=== PATIENT | female | born 1965 | race Two or more races ===

== ENCOUNTER 2018-05-12 16:43 | Emergency (ER) | payer OTHER ==
[~2018-05-12] VITALS: Ht 154.9 cm; Wt 76.7 kg
[2018-05-12 16:57] VITALS: BP 142/68
--- NOTE | 2018-05-12 18:00 | RAD ---
Indication: Pain in the left hip of the stepping or object one week ago. TECHNIQUE: AP pelvis and 2 views of the left hip COMPARISON: None FINDINGS/ impression: No acute fracture or dislocation. The hip joint is symmetric bilaterally with minimal osteoarthritis. SI joints within normal limits. Visualized lumbar spine is within normal limits. Electronically signed by: Tristian Hutton DO (05/12/2018 5:57 PM) [facility]
--- NOTE | 2018-05-12 18:19 | PHYS DOC ---
Past Medical History Past Medical History: DVT Past Surgical History: Knee Replacement Alcohol Use: Occasionally Drug Use: None Adult General Chief Complaint Chief Complaint: LOWEREXTREMITY INJURY [facility] HPI Patient is a 52 year old female with history of DVT to the left knee after an injury years ago who presents today complaining of 10 out of 10 pain radiating into the left lower extremity that has been going on for one week with numbness on the thigh. Patient states the pain began after she tripped at work but did not fall. She states she has been seen at urgent care twice for this pain. She states she just came from urgent care and they sent her to the ED to geta venous Doppler of the left lower extremity to rule out any DVT. Patient denies any chest pain or shortness of breath. She is currently not on any blood pain is. Review of Systems Review of Systems Constitutional: Denies fever or chills [] Eyes: Denies change in visual acuity, redness, or eye pain [] HENT: Denies nasal congestion or sore throat [] Respiratory: Denies cough or shortness of breath [] Cardiovascular: No additional information not addressed in HPI [] GI: Denies abdominal pain, nausea, vomiting, bloody stools or diarrhea [] : Denies dysuria or hematuria [] Musculoskeletal: Reports pain radiating to the left lower extremity with numbness to the thigh Integument: Denies rash or skin lesions [] Neurologic: Denies headache, focal weakness or sensory changes [] All other systems were reviewed and found to be within normal limits, except as documented in this note. Physical Exam Physical Exam Constitutional: Well developed, well nourished, no acute distress, non-toxic appearance. [] HENT: Normocephalic, atraumatic, bilateral external ears normal, oropharynx moist, no oral exudates, nose normal. [] Eyes: PERRLA, EOMI, conjunctiva normal, no discharge. [] Neck: Normal range of motion, no tenderness, supple, no stridor. [] Cardiovascular:Heart rate regular rhythm, no murmur [] Lungs & Thorax: Bilateral breath sounds clear to auscultation [] Abdomen: Bowel sounds normal, soft, no tenderness, no masses, no pulsatile masses. [] Skin: Warm, dry, no erythema, no rash. [] Back: No tenderness, no CVA tenderness. [] Extremities: No tenderness, no cyanosis, no clubbing, ROM intact, no edema. Negative Homans sign to the left lower extremity. Neurologic: Alert and oriented X 3, normal motor function, normal sensory function, no focal deficits noted. [] Psychologic: Affect normal, judgement normal, mood normal. [] Current Patient Data Vital Signs Vital Signs Date Time Temp Pulse Resp B/P (MAP) Pulse Ox O2 Delivery O2 Flow Rate FiO2 05/12/18 16:57 97.8 77 18 142/68 (92) 94 Room Air 97.8 EKG EKG [] Radiology/Procedures Radiology/Procedures []PROCEDURE: HIP LEFT 2V WITH PELVIS Indication: Pain in the left hip of the stepping or object one week ago. TECHNIQUE: AP pelvis and 2 views of the left hip COMPARISON: None FINDINGS/ impression: No acute fracture or dislocation. The hip joint is symmetric bilaterally with minimal osteoarthritis. SI joints within normal limits. Visualized lumbar spine is within normal limits. Electronically signed by: Tristian Esteban DO (05/12/2018 5:57 PM) [facility] DICTATED and SIGNED BY: TRISTIAN ESTEBAN DO DATE: 05/12/18 7818 Course & Med Decision Making Course & Med Decision Making Pertinent Labs and Imaging studies reviewed. (See chart for details) This is a 52-year-old female patient presenting to the ED today with the pain radiating into the left lower extremity after injuring herself at work, she tripped but did not fall a week ago. She has been seen at urgent care twice for this pain. They sent her to the ED today for venous Doppler. Venous Doppler of the left lower extremity is negative for any acute findings. Left hip x-rays including pelvis are negative for any acute findings. Patient was discharged with gabapentin, diclofenac, cyclobenzaprine and Medrol Dosepak. Instructed to follow-up with her own PCP or the orthopedic doctor provided in one week. Ice elevation encouraged. Dragon Disclaimer Dragon Disclaimer This electronic medical record was generated, in whole or in part, using a voice recognition dictation system. Departure Departure Impression: Primary Impression: Sciatica of left side Additional Impression: Paresthesia Disposition: 01 HOME, SELF-CARE Condition: STABLE Referrals: NO PCP (PCP) LUIS REGALADO MD follow up in one week Patient Instructions: Paresthesia, [id number], Sciatica with Rehab-SportsMed Additional Instructions: You were evaluated in the emergency room for pain on your left leg with the numbness to the thigh. Your left hip x-rays including pelvic are negative for any acute findings, your venous Doppler of the left lower extremity is negative for any acute findings. Take the medicines prescribed as ordered. Try to ice and elevate the extremity. Follow-up with your own doctor the provided doctor in 1-2 weeks. Scripts Gabapentin (GABAPENTIN) 300 Mg Capsule 300 MG PO TID, #30 CAP Prov: MYRON MENDEZ APRN 05/12/18 Diclofenac Sodium (DICLOFENAC SODIUM) 50 Mg Tablet.dr 1 TAB PO BID, #30 TAB 0 Refills Prov: MYRON MENDEZ APRN 05/12/18 Methylprednisolone (MEDROL) 4 Mg Tab.ds.pk 1 PKG PO UD, #1 PKG Prov: MYRON MENDEZ APRN 05/12/18 Cyclobenzaprine Hcl (CYCLOBENZAPRINE HCL) 10 Mg Tablet 1 TAB PO TID, #30 TAB Prov: MYRON MENDEZ APRN 05/12/18 Problem Qualifiers MYRON MENDEZ APRN May 12, 2018 18:19
[2018-05-12] MEDS ORDERED: CYCL10TA2 PO (18:25)
[2018-05-12] MEDS ORDERED: DICL50TA4 PO (18:25)
[2018-05-12] MEDS ORDERED: METH4TAB2 PO (18:25)
[2018-05-12] MEDS ORDERED: GABA-586 PO (18:25)
--- NOTE | 2018-05-12 19:32 | RAD ---
Ultrasound venous Doppler INDICATION:pt c/o tingling down lat thigh, pain mid lat thigh, post work injury TECHNIQUE: Grayscale, color Doppler and spectral waveform ultrasound images of the left lower extremities deep veins obtained. COMPARISON: None FINDINGS: The interrogated deep veins are compressible and demonstrate evidence of blood flow with normal respiratory variation and response to augmentation. Focused scan in the lateral thigh in the region of pain demonstrates no sonographic abnormality. IMPRESSION: No sonographic evidence of acute DVT of the left lower extremity deep veins. Electronically signed by: Tristian Hutton DO (05/12/2018 7:29 PM) [facility]
== END 2018-05-12 19:05 | disposition home or self-care (01) ==
LOC: ER 16:43
DX: M54.32 Sciatica, left side (principal); R20.2 Paresthesia of skin; M25.552 Pain in left hip; M25.562 Pain in left knee; Z86.718 Personal history of other venous thrombosis and embolism
CPT/HCPCS: 73502; 93971; 99284-25